=== PATIENT | male | born 1985 | race Caucasian/White ===

== ENCOUNTER 2016-05-27 09:00 | Emergency (ER) | payer OTHER ==
[2016-05-27 09:07] VITALS: BP 139/81; PULSE 83; RESP 17; TEMP 97.9; O2SAT 97
--- NOTE | 2016-05-27 09:16 | EDPHY ---
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 last evening. She describes playing shaunaie during a soccer game is unsure whether he may have fallen on the area or whether he may have sustained a traumatic dislocation. No paresthesia. He has not come to the ER last evening stating that this usually self reduces. PHYSICAL EXAM (Prior to examination, patient consented to physical exam, hands were washed and my usual and customary physical exam procedures followed) 1) GENERAL: Well-developed, well-nourished, alert and oriented. Appears to be in no acute distress. 2) HEAD: Normocephalic 3) HEENT: Pupils equal, round, reactive to light bilaterally. 4) LUNGS: Breathing comfortably. 5) MUSCULOSKELETAL: Left upper extremity: Anterior fullness in lateral step- off consistent with dislocation. Soft compartments. Normal coloration. 6) SKIN: intact. 7) VASCULAR: pulses and cap refill present are brisk 8) NEUROLOGIC: Radial, ulnar, median nerve function intact with no deficits appreciated on exam. Full and equal sensation bilateral deltoid. DIFFERENTIAL DIAGNOSIS: in no particular order including but not limited to fracture, sprain, compartment syndrome Pre reduction Xray of the left shoulder interpreted by myself: Dislocation , no definitive fracture Post reduction x-ray left shoulder shows appropriate anatomic alignment. Procedure: Dislocation reduction. The dislocation of the left shoulder was reduced using traction and counter traction technique without complications. Post reduction the patient's neurovascular exam is normal. Post reduction x-ray demonstrates reduction of the joint to the anatomic position. The procedure was performed by myself. Smoking Status: Never smoked Constitutional: Initial Vital Signs Temperature (C) 36.6 C 05/27/16 09:03 Heart Rate 83 05/27/16 09:03 Respiratory Rate 17 05/27/16 09:03 Blood Pressure 139/81 H 05/27/16 09:03 O2 Sat (%) 97 05/27/16 09:03 O2 Delivery Mode Room Air Allergies/Adverse Reactions: No Known Allergies Allergy (Unverified 05/27/16 09:02) Home Medications: Medication Instructions Recorded Percocet 5-325 mg Tablet 05/27/16 MDM/Departure - [facility] ED Course/Re-evaluation: 9:15 a.m.: I evaluated the patient, he does have findings consistent with dislocation however is unsure whether he may have fallen onto the area during a soccer game last evening. Will obtain x-ray. He has been informed that due to the delayed seeking medical attention this may cause more challenges with reduction. - Depart Disposition: Home, Routine, Self-Care Clinical Impression: Recurrent dislocation of left shoulder Condition: Good Instructions: Shoulder Dislocation (ED) Referrals: Jono Delgadillo MD [Medical Doctor] - 5-7 days, if not improved (Dr. Jono Delgadillo is orthopedic surgeon)
--- NOTE | 2016-05-27 09:46 | DX ---
Left Shoulder, Two Views May 27, 2016 9:28 a.m. Indication: Pain. Soccer injury. Findings: The humeral head is dislocated anteriorly into the subcoracoid space. No discernible fractu re. The acromioclavicular and coracoclavicular intervals are normal. Impression: Anterior shoulder dislocation.
--- NOTE | 2016-05-27 10:13 | DX ---
Left Shoulder, Two Views May 27, 2016 9:56 a.m. Indication: Post reduction. Findings: The bones are anatomically aligned. The humeral head normally articulates with the glenoid. No glenoid chip fracture. The coracoclavicular and acromioclavicular intervals are normal. Impression: Good anatomic reduction. No glenoid fracture.
== END 2016-05-27 10:13 | disposition home or self-care (01) ==
PROC: 0RSKXZZ Reposition Left Shoulder Joint, External Approach (ICD-10-PCS; principal; 2016-05-27)
DX: M24.412 Recurrent dislocation, left shoulder (principal); X58.XXXA Exposure to other specified factors, initial encounter; Y99.8 Other external cause status; Y93.66 Activity, soccer